=== PATIENT | female | born 1995 | race African-American/Black ===

== ENCOUNTER 2019-06-29 20:34 | Emergency (ER) | payer BC, OTHER ==
[~2019-06-29] VITALS: Ht 154.9 cm; Wt 81.6 kg
[2019-06-29 22:55] VITALS: BP 131/81
[2019-06-29] MEDS ORDERED: POLY10DR3 EACHEYE (23:20)
--- NOTE | 2019-06-29 23:24 | PHYS DOC ---
Past Medical History Attending Signature I have participated in the care of this patient and I have reviewed and agree with all pertinent clinical information above including history, exam, and recommendations. (SHAMAR CADE MD) Adult General Chief Complaint Chief Complaint: EYE PROBLEMS HPI HPI Patient is a 24 year old female who presents with today about 1 PM and having left eye yellow-green drainage and itchiness. Patient denies any injury. States that she has irritation in the eye and she rates her pain a 6 out of 10. (NARA WILL APRN) Review of Systems Review of Systems Eyes: Denies change in visual acuity. conjunctiva redness, Eye drainage. Denies or eye pain [] All other systems were reviewed and found to be within normal limits, except as documented in this note. (NARA WILL APRN) Allergies Allergies Allergies Coded Allergies Type Severity Reaction Last Updated Verified No Known Drug Allergies 06/29/19 No (SHAMAR CADE MD) Physical Exam Physical Exam Constitutional: Well developed, well nourished, no acute distress, non-toxic appearance. [] HENT: Normocephalic, atraumatic, bilateral external ears normal, oropharynx moist, no oral exudates, nose normal. [] Eyes: PERRLA, EOMI, conjunctiva red, yellow/ green discharge. [] Neck: Normal range of motion, no tenderness, supple, no stridor. [] Cardiovascular:Heart rate regular rhythm, no murmur [] Lungs & Thorax: Bilateral breath sounds clear to auscultation [] Abdomen: Bowel sounds normal, soft, no tenderness, no masses, no pulsatile masses. [] Skin: Warm, dry, no erythema, no rash. [] Back: No tenderness, no CVA tenderness. [] Extremities: No tenderness, no cyanosis, no clubbing, ROM intact, no edema. [] Neurologic: Alert and oriented X 3, normal motor function, normal sensory function, no focal deficits noted. [] Psychologic: Affect normal, judgement normal, mood normal. [] (NARA WILL APRN) Current Patient Data Vital Signs Vital Signs Date Time Temp Pulse Resp B/P (MAP) Pulse Ox O2 Delivery O2 Flow Rate FiO2 06/29/19 22:55 98.1 72 17 131/81 (98) 100 Room Air 98.1 (SHAMAR CADE MD) EKG EKG [] (NARA WILL APRN) Radiology/Procedures Radiology/Procedures [] (NARA WILL APRN) Course & Med Decision Making Course & Med Decision Making Denies fever or recent illness. Denies visual changes. There is 2+ swelling of the eye and conjunctivae is red. There is yellow green drainage coming from the eye. PERRLA. No foreign body is seen in the eye. Patient denies any injury. Visual acuities are bilateral 20/20, right eye 20/15, left eye 20/20. States the eye does not hurt it just feels irritated. (NARA WILL APRN) Dragon Disclaimer Dragon Disclaimer This electronic medical record was generated, in whole or in part, using a voice recognition dictation system. (NARA WILL APRN) Departure Departure Impression: Primary Impression: Conjunctivitis Disposition: HOME, SELF-CARE Condition: STABLE Referrals: DANK CALIXTO (PCP) Patient Instructions: Conjunctivitis (Viral and Bacterial) Additional Instructions: Follow-up primary care provider. Take medications as prescribed. Denies anyone else use these eyedrops do not touch the tip to her eye as it can spread the infection. Scripts Polymyxin B Sulf/Trimethoprim (POLYMYXIN B-TMP EYE DROPS) 10 Ml Drops 1 DROP EACHEYE QID for 7 Days, #10 ML 0 Refills Prov: NARA WILL APRN 06/29/19 Problem Qualifiers Primary Impression: Conjunctivitis Conjunctivitis type: unspecified Laterality: left Qualified Codes: H10.9 - Unspecified conjunctivitis NARA WILL APRN Jun 29, 2019 23:23 SHAMAR CADE MD Jun 30, 2019 07:34
== END 2019-06-29 23:34 | disposition home or self-care (01) ==
LOC: ER 20:34
DX: H10.9 Unspecified conjunctivitis (principal)
CPT/HCPCS: 99283